=== PATIENT | male | born 1985 | race African-American/Black ===

== ENCOUNTER 2017-05-23 00:36 | Emergency (ER) | payer OTHER ==
[~2017-05-23] VITALS: Ht 167.6 cm; Wt 81.6 kg
[2017-05-23 03:30] VITALS: BP 139/66; TEMP 97.9
== END 2017-05-23 03:36 | disposition home or self-care (01) ==
LOC: ED 00:36
DX: G43.909 Migraine, unspecified, not intractable, without status migrainosus (principal)
CPT/HCPCS: 96360; 96375; 99284; J1100; J1200; J1885; J2405